=== PATIENT | female | born 1950 | race Hispanic/Latino ===

== ENCOUNTER → 2018-06-10 | Day surgery (SDC) | payer MEDICARE ==
[2018-06-06 09:56] LABS: BASOPHILS # (AUTO) 0.1 (0.0-0.1); BASOPHILS % 0.6 % (0.0-1.0); EOSINOPHILS # (AUTO) 0.1 (0.0-0.4); EOSINOPHILS % 1.5 % (0.0-6.0); HEMATOCRIT 48.1 % (34.2-44.1); HEMOGLOBIN 16.1 g/dL (12.0-16.0); LYMPHOCYTES # (AUTO) 3.2 (1.0-3.2); LYMPHOCYTES % 35.6 % (18.0-39.1); MEAN CORPUSCULAR HEMOGLOBIN 30.3 pg (28-32); MEAN CORPUSCULAR HGB CONC 33.5 g/dL (31-35); MEAN CORPUSCULAR VOLUME 90.4 fL (81-99); MONOCYTES # (AUTO) 0.6 (0.2-0.8); MONOCYTES % 6.6 % (4.4-11.3); NEUTROPHILS # (AUTO) 4.9 (2.1-6.9); NEUTROPHILS % 55.4 % (38.7-80.0); PLATELET COUNT 224 x10e3/uL (140-360); RED BLOOD COUNT 5.32 x10e6/uL (3.6-5.1); RED CELL DISTRIBUTION WIDTH 12.3 % (11.7-14.4)
[2018-06-06 10:13] LABS: ANION GAP 13.5 mmol/L (8-16); BLOOD UREA NITROGEN 15 mg/dL (7-26); BUN/CREATININE RATIO 18 (6-25); CALCIUM 10.4 mg/dL (8.4-10.2); CARBON DIOXIDE 25 mmol/L (22-29); CHLORIDE 105 mmol/L (98-107); CREATININE, SERUM 0.84 mg/dL (0.57-1.11); EST GLOMERULAR FILTRATION RATE > 60 ML/MIN (60-); GLUCOSE 112 mg/dL (74-118); POTASSIUM 4.5 mmol/L (3.5-5.1); SODIUM 139 mmol/L (136-145)
--- NOTE | 2018-06-06 11:30 | Diagnostic Imaging Report ---
PROCEDURE: Frontal and lateral views of the chest. COMPARISON: None. INDICATIONS: PRE-OP. DENIES CHEST COMPLAINTS FINDINGS: Lines/tubes: None. Lungs: The lungs are well inflated. There is no evidence of pneumonia or pulmonary edema. Mild patchy bibasilar opacities, likely atelectasis. Pleura: There is no pleural effusion or pneumothorax. Heart and mediastinum: The cardiomediastinal silhouette is unremarkable. Atherosclerotic aortic calcification. Bones: No acute bony abnormality. IMPRESSION: No acute radiographic abnormality. Dictated by: ORTEGA BARRETT M.D. on 06/06/2018 at 11:39 Electronically approved by: ORTEGA BARRETT M.D. on 06/06/2018 at 11:39
[~2018-06-10] MED LIST: BETAMETHASONE DISODIUM PHOS 6 MG/ML VIAL ONE; BUPIVACAINE HCL 0.5% INJ 30 ML VIAL INJ ONE; CEFAZOLIN SOD 2 GM/D5W 50ML 50 ML IV ONE; DEXAMETHASONE SOD PHOS INJ 4 MG/ML VIAL ONE; FENTANYL CITRATE/PF 100MCG/2 ML INJ ONE; GLIPIZIDE5 MG PO; HYDROCHLOROTHIA25 MG PO; HYDROMORPHONE 2MG/ML 2 MG/ML ML ONE; KETOROLAC TROMETHAMINE 30 MG/ML VIAL ONE; LIDOCAINE HCL 1% LOCAL INJ 20 ML VIAL ONE; LIDOCAINE HCL 2% LOCAL INJ 5 ML SDV VIAL INJ ONE; LOVASTATIN20 MG PO; METOPROLOL TART50 MG PO; MIDAZOLAM HCL 2 MG/2 ML VIAL ONE; MORPHINE SULFATE 2 MG/ML SYR ONE; MUPIROCIN 2% OINT 22 GM TUBE ONE; NEOSTIGMINE 1 MG/ML 10ML VIAL ONE; ONDANSETRON HCL INJ 2 MG/ML VIAL ONE; PROPOFOL IV EMULSION 10 MG/ML 20 ML VIAL ONE; SEVOFLURANE INHAL SOLN 250 ML PEN BTL ONE
--- OUTSIDE RECORDS SUMMARY | 2018-06-10 05:21 | XMS REPORT ---
[facility] Address Unknown Phone Unavailable Care Team Providers Care Health And Physical Education Professor Name Role Phone MIGNON CANTRELL Unavailable Unavailable Problems This patient has no known problems. Allergies, Adverse Reactions, Alerts This patient has no known allergies or adverse reactions. Medications This patient has no known medications. Results Test Description Test Time Test Comments Text Results Atomic Results Result Comments CHEST 2 VIEWS 2018-06-06 11:39:00 [place] [address] Patient Name: JAZMIN REYES MR #: [id number] : 1950 Age/Sex: 67/F Req #: [id number] Adm Physician: Ordered by: MIGNON CANTRELL DPM Report #: [id number] Location: OR Room/Bed: Procedure: [id number] DX/CHEST 2 VIEWS Exam Date: Exam Time: REPORT STATUS: Signed PROCEDURE: Frontal and lateral views of the chest. COMPARISON: None. INDICATIONS: PRE-OP. DENIES CHEST COMPLAINTS FINDINGS: Lines/tubes: None. Lungs: The lungs are well inflated. There is no evidence of pneumonia or pulmonary edema. Mild patchy bibasilar opacities, likely atelectasis. Pleura: There is no pleural effusion or pneumothorax. Heart and mediastinum: The cardiomediastinal silhouette is unremarkable. Atherosclerotic aortic calcification. Bones: No acute bony abnormality. IMPRESSION: No acute radiographic abnormality. Dictated by: ORTEGA BARRETT M.D. on 06/06/2018 at 11:39 Electronically approved by: ORTEGA BARRETT M.D. on 06/06/2018 at 11:39 Dictated By: ORTEGA BARRETT MD [id number] Transcribed By: MAKAYLA on 06/06/18 1139 COPY TO: MIGNON CANTRELL DPM SCR MAMM BILATERAL DARLENE CAD DIGITAL 2018-05-31 13:30:03 - SCR MAMM BILATERAL DARLENE CAD DIGITALBILATERAL DIGITAL SCREENING MAMMOGRAM 3D/2D WITH CAD: 05/31/2018CLINICAL: Asymptomatic. Digital breast tomosynthesis was performed in addition to routine CC and MLO views. Current mammographic images were evaluated by either a [facility] M-Vu or a [employer] ImageChecker CAD (computer aided detection system). Comparison is made to exams dated 04/01/2016 mammogram and 06/2016 mammogram - [facility]. The tissue of both breasts is heterogeneously dense. This may lower the sensitivity of mammography. No suspicious mass, architectural distortion, malignant type calcification, or lymph node abnormality detected. Breast architecture is stable compared to prior exams.IMPRESSION: NEGATIVEThere is no mammographic evidence of malignancy. Resume annual screening mammography in one year. Rasta Guaman M.D. ss/penrad:05/31/2018 13:30:03 [employer] Consultant: Justin HOLCOMB, [facility] sent: BIRADS 1-2 Normal Mammogram BI-RADS: 1 Negative
--- NOTE | 2018-06-10 09:32 | Operative Report ---
DATE OF PROCEDURE: June 10, 2018 PREOPERATIVE DIAGNOSES 1. Painful hallux valgus deformity, left foot. 2. Painful contracted hammertoe, 4th digit, left foot. 3. Painful contracted hammertoe, 5th digit, left foot. 4. Painful plantar calcaneal heel spur, left foot. 5. Calcaneovalgus foot structure with hypertrophic navicular, left foot. POSTOPERATIVE DIAGNOSES 1. Painful hallux valgus deformity, left foot. 2. Painful contracted hammertoe, 4th digit, left foot. 3. Painful contracted hammertoe, 5th digit, left foot. 4. Painful plantar calcaneal heel spur, left foot. 5. Calcaneovalgus foot structure with hypertrophic navicular, left foot. OPERATIVE PROCEDURES 1. Silver bunionectomy, left foot. 2. Arthroplasty, 4th digit, with Ritu wire fixation, left foot. 3. Arthroplasty, 5th digit, left foot. 4. Resection of plantar calcaneal heel spur. 5. Kidner procedure with a tibialis posterior tendon advancement and partial resection of the navicular/accessory ossicle, left foot. 6. Intraoperative use of fluoroscopy. 7. Trigger-point shot of cortisone. 8. Application of posterior splint. ANESTHESIA: General. HEMOSTASIS: Pneumatic thigh tourniquet at 350 mmHg. PROCEDURE IN DETAIL: Patient was taken into the operating room and placed on the operating room table in the supine position. Following induction of general anesthesia by the anesthesiologist, Webril wraps were placed on the patient's left thigh followed by placement of a left thigh tourniquet. The left lower extremity was then prepped and draped in the usual aseptic manner. The following procedures were then performed: Procedure #1: Silver bunionectomy, left foot. Attention was directed to the dorsomedial aspect of the 1st MPJ where a 6-cm linear incision was performed. The incision was deepened via sharp and blunt dissection, being careful to retract vital structures and ligate superficial vessels as necessary. Once the level of the capsule was reached, a longitudinal capsulotomy was then performed, exposing the dorsomedial exostosis of the 1st metatarsal head. Via the use of an oscillating saw, dorsomedial exostosis was excised from the operation site in toto. All rough and bony edges were rasped smooth. A lateral deviation was still noted. The extensor brevis tendon was isolated and tenotomized. Procedures #2 and #3: Arthroplasty, 4th and 5th digits, with K-wire fixation of 4th digit, left foot. Attention was then directed to the dorsal aspect of the above-mentioned toes where a 3-cm linear incision was performed overlying the proximal interphalangeal joint. The incision was deepened down via sharp dissection down to the capsule. A transverse capsulotomy was then performed exposing the head of the proximal phalanges. Via the use of an oscillating saw, the heads of the proximal phalanges were excised from the operation site in toto. All rough and bony edges were rasped smooth. The 4th toe was still noted to be contracted so a 0.045 K-wire was introduced up to the metatarsophalangeal joint to achieve proper anatomical reduction. Procedure #4: Resection of plantar calcaneal heel spur, left foot. Attention was then directed to the medial aspect of left heel where a 4 to 5 cm linear incision was performed. Incision was deepened down to the plantar fascial level. The plantar fascia was then clearly visualized. The medial one-half of the plantar fascia was resected from its insertion site, exposing the plantar calcaneal spur. Via the use of an osteotome and mallet, the plantar calcaneal spur was excised from the operation site in toto. Procedure #5: Kidner procedure, left foot. Attention was then directed to the medial aspect of the left foot coursing on the tibialis posterior tendon overlying the navicular area where a curvilinear incision was performed. The incision was deepened via sharp and blunt dissection, being careful to retract any vital structures and ligate superficial vessels as necessary. The tibialis posterior tendon was dissected free from the navicular. A large accessory ossicle was encountered to be loose and mobile. The accessory ossicle was then excised from the operation site in toto. The tibialis posterior tendon was then advanced anteriorly and plantarly on the navicular. Utilizing a Mitek anchor, it was anchored into the navicular bone. All areas were then copiously flushed with sterile antibiotic solution and suctioned. Procedure #6: Intraoperative use of fluoroscopy was then used to make sure proper alignment and fixation were achieved. Closure was then obtained utilizing 3-0 Vicryl, 5-0 Vicryl and 4-0 nylon for capsule, subcutaneous tissue and skin respectively. A TLS 7-mm drain was inserted into the heel area to drain any type of hematoma formation. Procedure #7: Trigger-point shot of cortisone was given to the left heel, 4th and 1st interspace of the left foot for the inflammation. Then approximately 10-15 mL of 0.5% plain Marcaine with 5-10 mL of 1% Xylocaine plain were used to achieve local anesthesia of the above-mentioned surgical areas. Sterile dressing was applied. Upon release of the thigh tourniquet, blood hyperemia was noted to be immediate to all digits of the patient's left foot. Procedure #8: Application of posterior splint. A properly placed posterior splint was then applied, keeping the foot at 90 degrees with respect to the leg to try to prevent any type of postop complications. Patient was then transferred from the OR to the recovery room with vital signs stable and neurovascular status intact. No intraoperative complications were encountered. Blood loss from the surgery was minimal. Patient is to remain nonweightbearing with the aid of crutches, keep her foot elevated and is to apply an ice pack to the ankle joint area. Job#: [id number]
[2018-06-10 09:45] VITALS: BP 100/82
== END | disposition home or self-care (01) ==
LOC: OR 05:18
PROVIDERS: ATTEND Podiatrist Foot Surgery
DX: M20.12 Hallux valgus (acquired), left foot (principal); M20.42 Other hammer toe(s) (acquired), left foot; M77.32 Calcaneal spur, left foot; Q66.4 Congenital talipes calcaneovalgus; I10 Essential (primary) hypertension; E78.5 Hyperlipidemia, unspecified; E11.9 Type 2 diabetes mellitus without complications; Z01.810 Encounter for preprocedural cardiovascular examination; Z01.812 Encounter for preprocedural laboratory examination; Z01.818 Encounter for other preprocedural examination; Z79.84 Long term (current) use of oral hypoglycemic drugs
CPT/HCPCS: 28119; 28238; 28285 ×2; 28292; 36415 ×2; 71046; 80048; 82948; 85025; 88305; 88311; 93005; J0690; J0720; J1100; J1170; J1885; J2001 ×2; J2250; J2270; J2405; J2704; 88304; J2710

== ENCOUNTER 2019-05-27 10:49 | Observation (INO) | payer MEDICARE ==
[~2019-05-27] VITALS: Ht 162.6 cm; Wt 77.1 kg
[~2019-05-27 10:49] MED LIST changes: -BETAMETHASONE DISODIUM PHOS 6 MG/ML VIAL ONE; -BUPIVACAINE HCL 0.5% INJ 30 ML VIAL INJ ONE; -CEFAZOLIN SOD 2 GM/D5W 50ML 50 ML IV ONE; -DEXAMETHASONE SOD PHOS INJ 4 MG/ML VIAL ONE; -FENTANYL CITRATE/PF 100MCG/2 ML INJ ONE; -HYDROMORPHONE 2MG/ML 2 MG/ML ML ONE; -KETOROLAC TROMETHAMINE 30 MG/ML VIAL ONE; -LIDOCAINE HCL 1% LOCAL INJ 20 ML VIAL ONE; -LIDOCAINE HCL 2% LOCAL INJ 5 ML SDV VIAL INJ ONE; -MIDAZOLAM HCL 2 MG/2 ML VIAL ONE; -MORPHINE SULFATE 2 MG/ML SYR ONE; -MUPIROCIN 2% OINT 22 GM TUBE ONE; -NEOSTIGMINE 1 MG/ML 10ML VIAL ONE; -ONDANSETRON HCL INJ 2 MG/ML VIAL ONE; -PROPOFOL IV EMULSION 10 MG/ML 20 ML VIAL ONE; -SEVOFLURANE INHAL SOLN 250 ML PEN BTL ONE
[2019-05-27] MEDS ORDERED: LOSARTAN POTAS100 MG PO (10:59)
[2019-05-27] MEDS ORDERED: MECLIZINE HCL 12.5 MG TAB PO ONE (11:15)
[2019-05-27 11:22] LABS: BASOPHILS # (AUTO) 0.1 (0.0-0.1); BASOPHILS % 0.8 % (0.0-1.0); EOSINOPHILS # (AUTO) 0.3 (0.0-0.4); EOSINOPHILS % 3.4 % (0.0-6.0); HEMATOCRIT 42.9 % (34.2-44.1); HEMOGLOBIN 14.6 g/dL (12.0-16.0); LYMPHOCYTES # (AUTO) 3.2 (1.0-3.2); LYMPHOCYTES % 41.1 % (18.0-39.1); MEAN CORPUSCULAR HEMOGLOBIN 30.4 pg (28-32); MEAN CORPUSCULAR VOLUME 89.2 fL (81-99); MONOCYTES # (AUTO) 0.5 (0.2-0.8); MONOCYTES % 6.7 % (4.4-11.3); NEUTROPHILS # (AUTO) 3.7 (2.1-6.9); NEUTROPHILS % 47.6 % (38.7-80.0); PLATELET COUNT 196 x10e3/uL (140-360); RED BLOOD COUNT 4.81 x10e6/uL (3.6-5.1); RED CELL DISTRIBUTION WIDTH 12.3 % (11.7-14.4)
[2019-05-27 11:27] LABS: BILIRUBIN,URINE NEGATIVE (NEGATIVE); CLARITY,URINE CLEAR (CLEAR); KETONES,URINE NEGATIVE (NEGATIVE); LEUKOCYTE ESTERASE ,URINE NEGATIVE (NEGATIVE); NITRITE,URINE NEGATIVE (NEGATIVE); PROTEIN,URINE DIPSTICK NEGATIVE (NEGATIVE); URINE UROBILINOGEN 0.2 mg/dL (0.2 - 1)
[2019-05-27 11:37] LABS: INR 0.91; PARTIAL THROMBOPLASTIN TIME 27.1 seconds (23.8-35.5); PROTHROMBIN TIME 12.7 seconds (11.9-14.5)
[2019-05-27 11:40] LABS: COLOR,URINE STRAW (YELLOW)
--- NOTE | 2019-05-27 11:41 | Diagnostic Imaging Report ---
History:Dizziness Comparison studies:None Technique: Axial images were obtained from the skull base to the vertex. Coronal and sagittal images reconstructed from the axial data. Intravenous contrast: None Dose modulation, iterative reconstruction, and/or weight based adjustment of the mA/kV was utilized to reduce the radiation dose to as low as reasonably achievable. Findings: Scalp/skull: No abnormalities. Extra-axial spaces: No masses. No fluid collections. Brain sulci: Moderately prominent at the frontal convexities. Mildly prominent at the remaining brain. Ventricles: Age-appropriate.. No hydrocephalus. Parenchyma: Small hypodensity at the left frontal deep white matter are small vessel ischemic changes. No masses, hemorrhage, acute or chronic cortical vascular insults. Sellar/suprasellar region: No abnormalities. Craniocervical junction: Patent foramen magnum. No Chiari one malformation. Incidental findings: Atherosclerotic calcifications in the carotid siphons . Impression: No acute abnormalities. Signed by: DR Cuba Santillan M.D. on 05/27/2019 11:38 AM
[2019-05-27 11:44] LABS: BACTERIA,URINE RARE /HPF; EPITHELIAL CELLS,URINE FEW /LPF; RBC,URINE 21-50 /HPF (0-5); WBC,URINE (MAN) 0-5 /HPF (0-5)
--- NOTE | 2019-05-27 11:46 | Diagnostic Imaging Report ---
EXAMINATION: CHEST SINGLE (PORTABLE) INDICATION: Dizziness. COMPARISON: June 06, 2018. FINDINGS: TUBES and LINES: None. LUNGS: Lungs are well inflated. Left basilar subsegmental atelectasis. There is no evidence of pneumonia or pulmonary edema. PLEURA: No pleural effusion or pneumothorax. HEART AND MEDIASTINUM: The cardiomediastinal silhouette is unremarkable. There are atherosclerotic calcifications within the aorta. BONES AND SOFT TISSUES: No acute osseous lesion. Soft tissues are unremarkable. UPPER ABDOMEN: No free air under the diaphragm. IMPRESSION: No acute thoracic abnormality. Signed by: Dr. Jignesh Ritter M.D. on 05/27/2019 11:42 AM
[2019-05-27 11:49] LABS: ALANINE AMINOTRANSFERASE 16 IU/L (0-55); ALBUMIN/GLOBULIN RATIO 1.4 (0.8-2.0); ALKALINE PHOSPHATASE 101 IU/L (40-150); ANION GAP 12.8 mmol/L (8-16); BLOOD UREA NITROGEN 17 mg/dL (7-26); BUN/CREATININE RATIO 22 (6-25); CALCIUM 9.6 mg/dL (8.4-10.2); CARBON DIOXIDE 23 mmol/L (22-29); CHLORIDE 104 mmol/L (98-107); CREATINE KINASE 57 IU/L (29-168); CREATININE, SERUM 0.76 mg/dL (0.57-1.11); EST GLOMERULAR FILTRATION RATE > 60 ML/MIN (60-); GLUCOSE 184 mg/dL (74-118); POTASSIUM 3.8 mmol/L (3.5-5.1); SODIUM 136 mmol/L (136-145)
[2019-05-27] MEDS ORDERED: ONDANSETRON HCL INJ 2MG/ML 2ML 2 MG/ML VIAL IV PRN (12:45)
--- NOTE | 2019-05-27 12:58 | NUR ---
DR. POWELL ROUNDING ON PT AT THIS TIME.
[2019-05-27] MEDS ORDERED: ASPIRIN 325 MG TAB EC PO NR (13:00)
--- NOTE | 2019-05-27 13:07 | NUR ---
SPOKE WITH RADIOLOGY, HUMAN SERVICE COORDINATOR TO BE CALLED OUT FOR STAT EXAM TODAY.
--- NOTE | 2019-05-27 13:30 | NUR ---
PT TO THE FLOOR AT THIS TIME WITH FAMILY. PT'S VITALS WNL. PT DENIES NEEDS AT THIS TIME.
[2019-05-27 14:00] VITALS: BP 141/63
[2019-05-27 14:30] LABS: CREATINE KINASE 52 IU/L (29-168)
--- NOTE | 2019-05-27 14:30 | History and Physical ---
CLINICAL HISTORY: This is a 68-year-old woman, seen in the emergency room at [facility] because of severe episode of recurrent dizziness. This patient was outside when she fell to the left side. She went to see Dr. Whaley and blamed it on left foot surgery the previous year. She went to see her agricultural specialist subsequently, who treated her with some kind of medicated bandage. Since that time, she has had no further falls. However, she had episodic dizziness, maybe 2 or 3 times over the past 2-3 months without vertigo and without requirement to go to the emergency room. This morning, she was working somewhat unsteadily, not particularly falling to one side, however, when she was sitting, she felt like she was going to fall backward to the right side. She decided to go to the emergency room, was seen by the emergency room physician. CT scan of the head was negative. EKG showed no acute changes. The patient was treated with meclizine with symptomatic improvement. She is being admitted because of family history of stroke. MRI is pending. PAST MEDICAL HISTORY: Remarkable for diabetes, hypertension, hyperlipidemia. Recently, her sugar has been difficult to control, but on the current regimen appears to be under good control. The blood sugar at this time is satisfactory. PERSONAL AND SOCIAL HISTORY: Denies smoking, drinking, but she does have secondhand smoke. She is a housewife. FAMILY HISTORY: Four grandparents, father, mother both had a stroke in their 60 to 80s. PAST SURGICAL HISTORY: Included cholecystectomy, hysterectomy, and left foot surgery. REVIEW OF SYSTEMS: Noncontributory. PHYSICAL EXAMINATION: GENERAL: She is alert, coherent, appears to be comfortable. VITAL SIGNS: Stable. CARDIAC: Jugular veins nondistended. S1, S2 are regular. There are no appreciable murmurs. LUNGS: Clear. ABDOMEN: Soft. Bowel sounds are present. EXTREMITIES: Show no cyanosis, clubbing, or edema. LABORATORY STUDIES: Urinalysis shows 21-50 rbc's, 0-5 wbc's and rare bacteria. Electrolytes are normal. Glucose 184. INR is normal. CBC is normal. Chest x-ray showed no acute pathology. CT scan of the head was negative. IMPRESSION: 1. Nonspecific dizziness. 2. Diabetes. 3. Hypertension. 4. Hyperlipidemia. 5. Family history of cerebrovascular accident. 6. Microhematuria. RECOMMENDATION: Symptomatic management. MRI scan of the head. If it is negative, consider further workup on outpatient basis. She will need to be referred to urologist for her hematuria. MD CEE Posey/KEYUR /[id number] cc: Keven Whaley MD
[2019-05-27] MEDS ORDERED: INFLUENZA VIRUS VAC SPLIT INJ 0.5 ML SYR IM SCH (14:43)
[2019-05-27] MEDS ORDERED: PNEUMOCOCCAL VACCINE POLYVALENT 23 MCG/0.5 ML VIAL IM SCH (14:43)
[2019-05-27 16:27] VITALS: BP 133/63
--- NOTE | 2019-05-27 16:51 | Diagnostic Imaging Report ---
Examination: MRI BRAIN WO CONTRAST History: Dizziness Comparison studies: Head CT from earlier today. Technique: Sagittal T2; axial DWI, FLAIR, GRE or SWI, T1, Coronal FLAIR. Intravenous contrast: None Findings: Scalp: No abnormal signal. No masses. Bone marrow: Normal in signal intensity. Brain volume: Adequate for age. No volume loss. Ventricles: Normal in size and configuration. No hydrocephalus. Extra-axial spaces: No abnormalities. Parenchyma: There are scattered punctate areas of T2/FLAIR hyperintensity in the periventricular and subcortical white matter, nonspecific. No masses, hemorrhage, or acute vascular insults. Suprasellar and sellar region: No abnormalities. Craniocervical junction: No abnormalities. The foramen magnum is patent. No Chiari malformations. Vessels: Normal flow-voids in the arteries and sinuses. Additional findings:None. IMPRESSION: No acute intracranial abnormalities. No change from head CT performed earlier today when accounting for differences in technique. Mild chronic microvascular ischemic change. Signed by: Dr. Roseanna Arita M.D. on 05/27/2019 4:47 PM
--- NOTE | 2019-05-27 17:23 | Diagnostic Imaging Report ---
Examination: MRA NECK WO, MRA HEAD WO CONTRAST History: Dizziness Comparison studies: None Technique: 2-D and 3-D [id number] MR angiograms of the cervical and intracranial circulations were obtained. MIP images of the arteries were isolated into the right and left cervical circulations and anterior and posterior intracranial circulations, 180 degree projections. Sagittal and coronal MPR images, and axial source images are available for evaluation. Degree of stenosis at the carotid bulbs, if present, will be calculated using NASCET criteria where the smallest diameter at the location of stenosis is compared to the diameter of the more distal non-diseased vessel lumen. Findings: Cervical MRA Aortic arch: Normal 3 great vessel origin. Patent. Internal carotid arteries: No flow abnormalities at the origins of the common carotid arteries, the cervical carotid bifurcations or in the cervical segments. Vertebral arteries: No flow abnormalities at the origins of the vertebral arteries or through its cervical segments (V1-V3). Intracranial MRA: Internal carotid arteries: Patent. Anterior cerebral arteries: Patent left A1 and bilateral A2 segments. Absent right A1. Middle cerebral arteries: Patent bilateral M1 and M2 segments. Vertebrobasilar circulation: Patent. Posterior cerebral arteries: Patent bilaterally. Anatomical variants: Anterior communicating arteries: Patent. There is a 8mm focal outpouching of the complex that points anteriorly and slightly laterally. Posterior communicating arteries: Patent. Vertebral arteries:Left dominant. IMPRESSION: 1. No cervical or intracranial arterial stenosis or occlusion. 2. 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 Signed by: Dr. Roseanna Arita M.D. on 05/27/2019 6:09 PM
[2019-05-27 20:00] VITALS: BP_SYST 121; BP_SYST 132; BP_SYST 137; BP_DIAS 58; BP_DIAS 60; BP_DIAS 66
--- NOTE | 2019-05-27 20:24 | NUR ---
ORTHOSTATIC VITALS LAYING 121/58 HR 68 SITTING 132/60 HR 71 STANDING 137/66 HR 77
[2019-05-27] MEDS ORDERED: SIMVASTATIN 20 MG TAB PO SCH (21:00)
[2019-05-27 21:27] LABS: CREATINE KINASE MB 0.9 ng/mL (0-5.0)
[2019-05-28] VITALS: BP 107/58
[2019-05-28 04:00] VITALS: BP 109/59
[2019-05-28 05:35] LABS: BASOPHILS # (AUTO) 0.1 (0.0-0.1); BASOPHILS % 0.9 % (0.0-1.0); EOSINOPHILS # (AUTO) 0.3 (0.0-0.4); EOSINOPHILS % 4.6 % (0.0-6.0); HEMATOCRIT 43.1 % (34.2-44.1); HEMOGLOBIN 14.4 g/dL (12.0-16.0); LYMPHOCYTES % 42.6 % (18.0-39.1); MEAN CORPUSCULAR HEMOGLOBIN 30.2 pg (28-32); MEAN CORPUSCULAR HGB CONC 33.4 g/dL (31-35); MEAN CORPUSCULAR VOLUME 90.4 fL (81-99); MONOCYTES # (AUTO) 0.5 (0.2-0.8); MONOCYTES % 7.1 % (4.4-11.3); NEUTROPHILS # (AUTO) 3.1 (2.1-6.9); NEUTROPHILS % 44.5 % (38.7-80.0); PLATELET COUNT 205 x10e3/uL (140-360); RED BLOOD COUNT 4.77 x10e6/uL (3.6-5.1); RED CELL DISTRIBUTION WIDTH 12.7 % (11.7-14.4)
[2019-05-28 05:59] LABS: CREATINE KINASE 34 IU/L (29-168)
[2019-05-28 06:36] LABS: ALANINE AMINOTRANSFERASE 15 IU/L (0-55); ALBUMIN 3.7 g/dL (3.5-5.0); ALBUMIN/GLOBULIN RATIO 1.4 (0.8-2.0); ALKALINE PHOSPHATASE 73 IU/L (40-150); ANION GAP 11.2 mmol/L (8-16); BLOOD UREA NITROGEN 13 mg/dL (7-26); BUN/CREATININE RATIO 18 (6-25); CALCIUM 9.9 mg/dL (8.4-10.2); CARBON DIOXIDE 27 mmol/L (22-29); CHLORIDE 106 mmol/L (98-107); CHOL/HDL RATIO 2.9 (3.0-3.6); CHOLESTEROL 165 MD/DL (0-199); CREATININE, SERUM 0.74 mg/dL (0.57-1.11); EST GLOMERULAR FILTRATION RATE > 60 ML/MIN (60-); GLUCOSE 103 mg/dL (74-118); HDL CHOLESTEROL 56 MG/DL (40-60); LDL CHOLESTEROL 83 MG/DL (60-130); POTASSIUM 4.2 mmol/L (3.5-5.1); SODIUM 140 mmol/L (136-145); TRIGLYCERIDES 132 MG/DL (0-149)
--- NOTE | 2019-05-28 07:00 | NUR ---
BEDSIDE SHIFT REPORT RECEIVED FROM NIGHT RN. PT DENIES NEEDS AT THIS TIME.
[2019-05-28] MEDS ORDERED: GLIPIZIDE 5 MG TAB PO SCH (07:30)
[2019-05-28 07:48] VITALS: BP 119/58
[2019-05-28 09:00] VITALS: BP 119/58
[2019-05-28] MEDS ORDERED: LOSARTAN POTASSIUM 100 MG TAB PO SCH (09:00)
[2019-05-28] MEDS ORDERED: ASPIRIN 81 MG ENTERIC COATED PO SCH (09:00)
[2019-05-28 11:55] VITALS: BP 142/63
[2019-05-28] MEDS ORDERED: PNEUMOCOCCAL VACCINE POLYVALENT 23 MCG/0.5 ML VIAL IM SCH (12:30)
[2019-05-28] MEDS ORDERED: INFLUENZA VIRUS VAC SPLIT INJ 0.5 ML SYR IM SCH (12:30)
--- NOTE | 2019-05-28 16:35 | Discharge Summary ---
CLINICAL HISTORY: This is a 68-year-old woman, admitted via the emergency room because of dizziness without vertigo. Please refer to my previous dictation concerning details of current illness, past medical history, personal and social history, family history, review of systems, physical examination, and initial laboratory studies. HOSPITAL COURSE: The patient underwent CT scan of the head in the emergency room, which was negative. MRI scan was negative. MRI showed anterior communicating artery 80 mm aneurysm (saccular). This was felt not to be causing her dizziness. Her dizziness spontaneously resolved. She was given meclizine. Diabetes, hypertension, and hyperlipidemia were all stable. She was found to have significant microhematuria without evidence of infection. She is referred to Urology to be seen on outpatient basis. We decided that she can be discharged for further outpatient basis, possibly with echocardiogram and Doppler scan of the carotid. She is referred to see Dr. Mejias for Urology and to go downtown to get a Neuroradiology consult as well as Neurosurgical consult. She stated that her sees a neurosurgeon downtown. She was not found to be orthostatic. With the patient walking without any dizziness, returning back to normal, she is discharged to be followed further with Dr. Keven Whaley. I gave her my phone number to be followed with echocardiogram and Doppler scan of the carotid if she wishes. DISCHARGE DIAGNOSES: 1. Anterior communicating saccular arterial aneurysm, measuring 8 mm, not causing dizziness. 2. Microhematuria of undetermined etiology. To be seen by Urology. 3. Dizziness spontaneously resolved after only one dose of meclizine. 4. Diabetes. 5. Hypertension. 6. Hyperlipidemia. 7. Extensive family history of cerebrovascular accident. 8. No evidence of orthostatic hypotension. DISCHARGE MEDICATIONS: Same as on admission. MD CEE Posey/KEYUR /[id number] cc: Keven Whaley MD
== END 2019-05-28 14:37 | disposition home or self-care (01) ==
LOC: ER 10:49 → ERHOLD 13:06 → MED/SURG2 13:42
PROVIDERS: ADMIT Internal Medicine Cardiovascular Disease; ATTEND Internal Medicine Cardiovascular Disease
DX: R42 Dizziness and giddiness (principal); I10 Essential (primary) hypertension; E11.65 Type 2 diabetes mellitus with hyperglycemia; E78.5 Hyperlipidemia, unspecified; Z90.49 Acquired absence of other specified parts of digestive tract; Z82.49 Family history of ischemic heart disease and other diseases of the circulatory system; R31.29 Other microscopic hematuria; Z82.3 Family history of stroke; I67.1 Cerebral aneurysm, nonruptured; Z23 Encounter for immunization; Z79.84 Long term (current) use of oral hypoglycemic drugs
CPT/HCPCS: 36415 ×2; 70450; 70544; 70547; 70551; 71045; 80053 ×2; 80061; 81001; 82550 ×2; 82553 ×2; 83735; 84484 ×2; 85025 ×2; 85610; 85730; 90732; 93005; 93306; 93880; 99285; G0009; G0378 ×2; J8597

== ENCOUNTER 2024-01-26 13:07 | Emergency (ER) | payer MEDICARE ==
[~2024-01-26] VITALS: Ht 162.6 cm; Wt 77.1 kg
[~2024-01-26 13:07] MED LIST changes: +ASPIRIN81 MG PO; +CEFDINIR300 MG PO; +DICYCLOMINE HCL20 MG PO; +FLONASE ALLERG9.9 ML INH; +GABAPENTIN100 MG PO; +LOSARTAN POTAS100 MG PO; +METOPROLOL SUCC25 MG PO; +MONTELUKAST SOD10 MG PO; +ONDANSETRON ODT4 MG PO; +PANTOPRAZOLE SO40 MG PO; +PREDNISONE20 MG PO
[2024-01-26 13:10] VITALS: TEMP 99.9
[2024-01-26 13:41] LABS: BASOPHILS # (AUTO) 0.1 (0.0-0.1); BASOPHILS % 0.5 % (0.0-1.0); EOSINOPHILS # (AUTO) 0.2 (0.0-0.4); HEMATOCRIT 43.5 % (34.2-44.1); HEMOGLOBIN 14.5 g/dL (12.0-16.0); LYMPHOCYTES # (AUTO) 1.3 (1.0-3.2); LYMPHOCYTES % 7.6 % (18.0-39.1); MEAN CORPUSCULAR HEMOGLOBIN 29.8 pg (28-32); MEAN CORPUSCULAR HGB CONC 33.3 g/dL (31-35); MEAN CORPUSCULAR VOLUME 89.3 fL (81-99); MONOCYTES # (AUTO) 0.8 (0.2-0.8); MONOCYTES % 4.8 % (4.4-11.3); NEUTROPHILS # (AUTO) 14.9 (2.1-6.9); NEUTROPHILS % 85.4 % (38.7-80.0); PLATELET COUNT 230 x10e3/uL (140-360); RED BLOOD COUNT 4.87 x10e6/uL (3.6-5.1); RED CELL DISTRIBUTION WIDTH 12.6 % (11.7-14.4)
[2024-01-26 13:51] LABS: CLARITY,URINE CLEAR (CLEAR); COLOR,URINE YELLOW (YELLOW)
[2024-01-26 13:52] LABS: BILIRUBIN,URINE NEGATIVE (NEGATIVE); GLUCOSE, URINE NEGATIVE (NEGATIVE); KETONES,URINE NEGATIVE (NEGATIVE); LEUKOCYTE ESTERASE ,URINE TRACE (NEGATIVE); NITRITE,URINE NEGATIVE (NEGATIVE); PH,URINE 5.5 (5 - 7); PROTEIN,URINE DIPSTICK NEGATIVE (NEGATIVE); URINE UROBILINOGEN 0.2 mg/dL (0.2 - 1)
[2024-01-26 14:02] LABS: ALBUMIN 4.4 g/dL (3.5-5.0); ALBUMIN/GLOBULIN RATIO 1.4 (0.8-2.0); ANION GAP 14.6 mmol/L (8-16); BILIRUBIN,TOTAL 0.6 mg/dL (0.2-1.2); CALCIUM 9.5 mg/dL (8.4-10.2); CREATININE, SERUM 0.96 mg/dL (0.57-1.11); POTASSIUM 3.6 mmol/L (3.5-5.1); TOTAL PROTEIN 7.6 g/dL (6.5-8.1)
[2024-01-26 14:16] LABS: BACTERIA,URINE FEW /HPF; EPITHELIAL CELLS,URINE FEW /LPF; RBC,URINE 0-5 /HPF (0-5)
[2024-01-26] MEDS: SODIUM CHLORIDE 0.9% 1000ML 1,000 ML IV ONE (14:40)
[2024-01-26 15:00] VITALS: PULSE 91; RESP 18; O2SAT 98
== END 2024-01-26 15:14 | disposition home or self-care (01) ==
LOC: ER 13:12
DX: R45.89 Other symptoms and signs involving emotional state (principal); I10 Essential (primary) hypertension; E11.9 Type 2 diabetes mellitus without complications; Z88.1 Allergy status to other antibiotic agents; Z79.2 Long term (current) use of antibiotics; Z79.52 Long term (current) use of systemic steroids; Z79.82 Long term (current) use of aspirin; Z79.84 Long term (current) use of oral hypoglycemic drugs
CPT/HCPCS: 36415; 71046; 80053; 81001; 85025; 87400; 99284; J7030; U0002

== ENCOUNTER → 2024-02-08 | Day surgery (SDC) | payer MEDICARE ==
[~2024-02-08] MED LIST changes: +HYOSCYAMINE SULFATE 0.5 MG/ML INJ ONE; +LIDOCAINE HCL 2% LOCAL INJ 5 ML SDV VIAL INJ ONE; +PROPOFOL IV EMULSION 10 MG/ML 20 ML VIAL ONE; +PROPOFOL IV EMULSION 10 MG/ML 50 ML VIAL IV ONE
[2024-02-08 06:49] LABS: BASOPHILS # (AUTO) 0.1 (0.0-0.1); BASOPHILS % 0.9 % (0.0-1.0); EOSINOPHILS # (AUTO) 0.5 (0.0-0.4); EOSINOPHILS % 6.3 % (0.0-6.0); HEMATOCRIT 44.5 % (34.2-44.1); HEMOGLOBIN 15.1 g/dL (12.0-16.0); LYMPHOCYTES % 37.3 % (18.0-39.1); MEAN CORPUSCULAR HEMOGLOBIN 30.5 pg (28-32); MEAN CORPUSCULAR HGB CONC 33.9 g/dL (31-35); MEAN CORPUSCULAR VOLUME 89.9 fL (81-99); MONOCYTES # (AUTO) 0.5 (0.2-0.8); MONOCYTES % 5.7 % (4.4-11.3); NEUTROPHILS % 49.5 % (38.7-80.0); PLATELET COUNT 213 x10e3/uL (140-360); RED BLOOD COUNT 4.95 x10e6/uL (3.6-5.1); RED CELL DISTRIBUTION WIDTH 12.7 % (11.7-14.4); WHITE BLOOD COUNT 7.96 x10e3/uL (4.8-10.8)
[2024-02-08] MEDS: LACTATED RINGER'S 1,000 ML ONE (06:53)
[2024-02-08 09:35] VITALS: BP 134/77; PULSE 79; RESP 16; O2SAT 98
[2024-02-08 10:08] LABS: BILIRUBIN,URINE SMALL (NEGATIVE); CLARITY,URINE SL CLOUDY (CLEAR); COLOR,URINE YELLOW (YELLOW); GLUCOSE, URINE NEGATIVE (NEGATIVE); KETONES,URINE TRACE (NEGATIVE); LEUKOCYTE ESTERASE ,URINE MODERATE (NEGATIVE); NITRITE,URINE NEGATIVE (NEGATIVE); PH,URINE 5.5 (5 - 7); PROTEIN,URINE DIPSTICK NEGATIVE (NEGATIVE); URINE UROBILINOGEN 0.2 mg/dL (0.2 - 1)
[2024-02-08 10:20] LABS: BACTERIA,URINE MANY /HPF; EPITHELIAL CELLS,URINE MANY /LPF; TRANSITIONAL EPI CELLS,URINE FEW; WBC,URINE (MAN) 21-50 /HPF (0-5)
== END | disposition home or self-care (01) ==
LOC: OR 06:50
PROVIDERS: ATTEND Internal Medicine Gastroenterology
DX: R13.10 Dysphagia, unspecified (principal); K31.7 Polyp of stomach and duodenum; K29.50 Unspecified chronic gastritis without bleeding; B96.81 Helicobacter pylori [H. pylori] as the cause of diseases classified elsewhere; K21.9 Gastro-esophageal reflux disease without esophagitis; K44.9 Diaphragmatic hernia without obstruction or gangrene; K57.30 Diverticulosis of large intestine without perforation or abscess without bleeding; K64.8 Other hemorrhoids; I10 Essential (primary) hypertension; E78.5 Hyperlipidemia, unspecified; E11.9 Type 2 diabetes mellitus without complications; Z79.82 Long term (current) use of aspirin; Z79.84 Long term (current) use of oral hypoglycemic drugs; Z79.899 Other long term (current) drug therapy; Z87.898 Personal history of other specified conditions
CPT/HCPCS: 36415; 43239; 45378; 81001; 85025; 93005; J7121; J1980; J2001

== ENCOUNTER 2024-02-25 12:05 | Emergency (ER) | payer MEDICARE ==
[~2024-02-25] VITALS: Ht 162.6 cm; Wt 77.6 kg
[~2024-02-25 12:05] MED LIST changes: -HYOSCYAMINE SULFATE 0.5 MG/ML INJ ONE; -LIDOCAINE HCL 2% LOCAL INJ 5 ML SDV VIAL INJ ONE; -PROPOFOL IV EMULSION 10 MG/ML 20 ML VIAL ONE; -PROPOFOL IV EMULSION 10 MG/ML 50 ML VIAL IV ONE
[2024-02-25 12:45] VITALS: PULSE 102; RESP 17; TEMP 100.8; O2SAT 99
== END 2024-02-25 13:26 | disposition home or self-care (01) ==
LOC: ER 12:14
DX: R50.9 Fever, unspecified (principal); R11.2 Nausea with vomiting, unspecified; I10 Essential (primary) hypertension; E11.9 Type 2 diabetes mellitus without complications; E78.5 Hyperlipidemia, unspecified
CPT/HCPCS: 99282

== ENCOUNTER → 2024-03-20 | Outpatient (REF) | payer MEDICARE ==
[~2024-03-20] MED LIST changes: +IOPAMIDOL 370 MG/ML 100 ML INFUS..BTL INJ ONE
[2024-03-20 15:40] LABS: CREATININE, SERUM 0.87 mg/dL (0.57-1.11)
== END ==
LOC: CT 14:37
PROVIDERS: ATTEND Nurse Practitioner Family
DX: R11.2 Nausea with vomiting, unspecified (principal)
CPT/HCPCS: 36415; 74177; 82565; 84520; Q9967

== ENCOUNTER → 2024-03-30 | Outpatient (REF) | payer MEDICARE ==
[~2024-03-30] MED LIST changes: -IOPAMIDOL 370 MG/ML 100 ML INFUS..BTL INJ ONE
== END ==
LOC: DX 08:37
PROVIDERS: ATTEND Nurse Practitioner Family
DX: K63.9 Disease of intestine, unspecified (principal)
CPT/HCPCS: 74280

== ENCOUNTER 2024-04-27 11:55 | Emergency (ER) | payer MEDICARE ==
[~2024-04-27] VITALS: Ht 162.6 cm; Wt 73.9 kg
[2024-04-27 12:50] VITALS: PULSE 75; RESP 15; TEMP 97.9; O2SAT 99
[2024-04-27] MEDS ORDERED: AMOX TR-K CLV1 EAC2 PO (14:48)
[2024-04-27] MEDS ORDERED: HYDROCODON-ACE1 EA11 PO (14:49)
== END 2024-04-27 15:00 | disposition home or self-care (01) ==
LOC: ER 12:00
DX: S52.515A Nondisplaced fracture of left radial styloid process, initial encounter for closed fracture (principal); W18.39XA Other fall on same level, initial encounter; Y93.01 Activity, walking, marching and hiking; Y92.89 Other specified places as the place of occurrence of the external cause; I10 Essential (primary) hypertension; E11.9 Type 2 diabetes mellitus without complications; E78.5 Hyperlipidemia, unspecified
CPT/HCPCS: 99283